=== PATIENT | female | born 1965 | race American Indian/Alaskan Native ===

== ENCOUNTER 2021-03-24 11:37 | Emergency (ER) | payer SELFPAY ==
[2021-03-24] MEDS ORDERED: oxyCODONE /ACETAMINOPHEN 5-325MG TAB PO ONE (12:13)
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
[2021-03-24 13:01] LABS: Albumin 3.7 g/dL (3.9-5)
[2021-03-24 13:09] LABS: Basophils % (Auto) 0.5 % (0.0-1.8); Eosinophils % (Auto) 0.6 % (0.0-4.3); Hematocrit 36.6 % (30.3-42.9); Hemoglobin 11.2 gm/dl (10.1-14.3); Lymphocytes # (Auto) 0.8 K/mm3 (1.2-5.4); Lymphocytes % (Auto) 14.3 % (13.4-35.0); Mean Corpuscular HGB Conc 31 % (30-34); Mean Corpuscular Volume 72 fl (79-97); Monocytes # (Auto) 0.5 K/mm3 (0.0-0.8); Monocytes % (Auto) 8.7 % (0.0-7.3); Red Blood Count 5.06 M/mm3 (3.65-5.03)
[2021-03-24 13:18] LABS: INR 0.97 (0.87-1.13); Partial Thromboplastin Time 25.7 Sec. (24.2-36.6); Platelet Count 170 K/mm3 (140-440)
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
--- NOTE | 2021-03-24 14:04 | Vascular Lab Report ---
DUPLEX DOPPLER LOWER EXTREMITY VEINS, LEFT INDICATION / CLINICAL INFORMATION: left leg swelling, history of DVT. TECHNIQUE: Duplex doppler imaging was performed through the veins of the left lower extremity using venous compr ession and other maneuvers. COMPARISON: None available. FINDINGS: LEFT COMMON FEMORAL VEIN: Negative. LEFT FEMORAL VEIN: Negative. LEFT POPLITEAL VEIN: Negative. LEFT CALF VEINS: Negative. ADDITIONAL FINDINGS: None. IMPRESSION: 1. No sonographic evidence for DVT in the left lower extremity. Signer Name: Archie Gil MD Signed: 03/24/2021 2:00 PM Workstation Name: [id number]
[2021-03-24 16:46] VITALS: BP 198/102
== END 2021-03-24 16:45 | disposition home or self-care (01) ==
LOC: ED 11:37
DX: S92.502A Displaced unspecified fracture of left lesser toe(s), initial encounter for closed fracture (principal); S92.512A Displaced fracture of proximal phalanx of left lesser toe(s), initial encounter for closed fracture; S90.822A Blister (nonthermal), left foot, initial encounter; L03.116 Cellulitis of left lower limb; M25.511 Pain in right shoulder; I10 Essential (primary) hypertension; V09.9XXA Pedestrian injured in unspecified transport accident, initial encounter; Y93.89 Activity, other specified; Y92.89 Other specified places as the place of occurrence of the external cause; Y99.8 Other external cause status
CPT/HCPCS: 36415; 80053; 83880; 85025; 85610; 85730; 99283; 99284